=== PATIENT | female | born 1990 | race Caucasian/White ===

== ENCOUNTER 2016-08-15 09:06 | Inpatient (IN) | payer MEDICAID ==
[~2016-08-15] VITALS: Ht 160 cm; Wt 61.7 kg
[~2016-08-15 09:06] MED LIST: BACTRIM DS 8001 TAB PO; FERROUS SULFAT324 M1 PO; MOTRIN 400MG.400 MG PO; NOMEDS *; PYRIDIUM100 MG PO
[2016-08-15 09:24] VITALS: BP 139/78
[2016-08-15] MEDS ORDERED: NOMEDS XX (09:28)
[2016-08-15 09:44] LABS: HEMOGLOBIN 11.3 g/dL (12.2-16.2); LYMPH # 2.7 K/mm3 (0.7-4.5); LYMPH % 23.1 % (10-50.0)
--- NOTE | 2016-08-15 09:56 | Delivery Note ---
Delivery note Delivery date: 08/15/16 Delivery time: 935 Anesthesia: None Was labor medically induced? No Gestational age in weeks: 36 weeks Days: 6 days Delivery prior to 39 weeks? Yes Justification for delivery: Active labor Sex: female score at one minute: 9 at 5 minutes: 9 Type of suction: bulb AF: Thick mec LAC or MLE: LAC (none) Delivery procedure: Normal Delivery Delivery of placenta: spontaneous Clinical note She is a 26-year-old 3 now para 3 who was 36 and 6 weeks gestational age. She came in in active labor and was found be 9 cm dilated. She has had no care throughout the . She spontaneously ruptured her membranes and rapidly delivered a live-born female child at 9:36 AM in the morning of August 15, 2016. Baby's head delivered followed by the rest of the 's body atraumatically. The cord was clamped and cut, the oropharynx and nasopharynx were bulb suctioned and the baby was handed off to nurses who assigned Apgars of 9 at 1 and 9 at 5 minutes. Shortly after the baby was born Dr. Selby arrived. The baby cried spontaneously and was vigorous. Cord blood and cord gases were then obtained. The cord pH was 7.47. Patient received IV oxytocin and using gentle traction on the cord and countertraction on the fundus placenta was delivered intact. There were no perineal or vaginal lacerations. We will await routine blood work. We will also get routine drug screen. Stated blood loss was approximately 800 mL. Her rotary derrick operator is Dr. Selby. at [id number]
[2016-08-15 11:01] LABS: URINE BILIRUBIN - DIPSTICK NEGATIVE (NEG); URINE BLOOD 3+ (NEG)
[2016-08-15 11:16] LABS: AMPHETAMINES/METAMPHETAMINES NEGATIVE ng/mL (<1000)
[2016-08-15 11:43] LABS: ABO BLOOD TYPE A; RH BLOOD TYPE NEGATIVE
--- NOTE | 2016-08-15 11:47 | ACUTE CARE PROGRESS NOTE (QUA) ---
Progress Notes Subjective Date 08/15/16 Time 1145 Note She is had some bleeding since delivery and has now passed a large clot. She has bled approximately 500 mL since her delivery. I was able to evacuate approximately another 100 mL of blood clots from the uterus. The uterus is completely empty of clots and it is very firm. She has received Hemabate. She looks pale. Patient/family reports: feeling better Objective Findings Last VS-Temp:97.8 B/P:139/78 Pulse:91 Resp:18 SaO2: Last weight lbs:136 oz:0 [id number].689 Method:Digital Scales Exam General appearance: normal appearance Skin: pale Reviewed: vital signs, lab results Assessment/Plan Problem List 1. hemorrhage Patient condition Stable Plan: continue current care, order additional tests This inpt stay is expected to cross 2 MNs from start of care Yes Comments: She had hemorrhage with approximate 500 mL of blood loss on top of the 800 mL that she lost time for delivery. She has received Hemabate 1. We will get a stat H and H. We will continue with IV oxytocin. We will repeat her doses of Hemabate as necessary. We will type and cross her for 2 units of blood. at 1148
[2016-08-15 11:53] LABS: HEMOGLOBIN 9.4 g/dL (12.2-16.2)
[2016-08-15 16:08] LABS: HEMOGLOBIN 8.4 g/dL (12.2-16.2)
[2016-08-15 21:03] VITALS: BP 116/61
[2016-08-16] VITALS (19 sets, daily range): BP systolic 98–125; BP diastolic 50–72
[2016-08-16 06:37] LABS: Rubella Antibodies, IgG 1.62 index (Immune >0.99)
--- NOTE | 2016-08-16 07:53 | ACUTE CARE PROGRESS NOTE (QUA) ---
Progress Notes Subjective Date 08/16/16 Time 0750 Note She had significant bleeding is today after her delivery. She also had significant blood loss at the time of her delivery. Her hemoglobin this morning is 7.0 so we will go ahead and transfuse HER-2 units. Patient/family reports: feeling better, no complaints Objective Findings Last VS-Temp:98.0 B/P:116/61 Pulse:109 Resp:18 SaO2: Last weight lbs:136 oz:0 K.689 Method:Digital Scales Laboratory Tests 08/16/16 0640: Hgb 7.0 *L, Hct 20.2 *L 08/15/16 1600: Hgb 8.4 L, Hct 25.3 L 08/15/16 1142: Hgb 9.4 L, Hct 28.2 L 08/15/16 0930: Cord Blood pH 7.47 H 08/15/16 0925: MCH 28.5 08/15/16 0925: WBC 11.5 H, RBC 3.98 L, Hgb 11.3 L, Hct 33.9 L, MCV 85.3, RDW 14.4, Plt Count 155, MPV 10.1, Gran % 73.5, Gran # 8.5 H, Lymphocytes % 23.1, Monocytes % 3.1, Eosinophils % 0.2, Basophils % 0.1, Lymphocytes # 2.7, Monocytes # 0.4, Eosinophils # 0.0, Basophils # 0.0, PUBS MCHC 33.4, Antibody Screen NEGATIVE, Miscellaneous Test NEGATIVE 08/15/16 0900: Opiates Screen NEGATIVE, Urine Methadone Screen NEGATIVE, Barbiturates NEGATIVE, Phencyclidine Screen NEGATIVE, Amphetamines Screen NEGATIVE, Benzodiazepines Screen NEGATIVE, Cocaine Screen POSITIVE H, Marijuana (THC) Screen NEGATIVE, Urine Color YELLOW, Urine Appearance SL CLOUDY, Urine pH 7.5, Ur Specific Mcgehee 1.020, Urine Protein 2+ H, Urine Ketones NEGATIVE, Urine Blood 3+ H, Urine Nitrate NEGATIVE, Urine Bilirubin NEGATIVE, Urine Urobilinogen 0.2, Ur Leukocyte Esterase NEGATIVE, Urine RBC 5-10, Urine WBC 5-10, Ur Squamous Epith Cells 5-10, Urine Bacteria 2+, Urine Glucose NEGATIVE Microbiology 08/15 899 URINE CC: Urine Culture - RECD Exam General appearance: normal appearance, alert, awake, no acute distress Skin: pale Reviewed: vital signs, lab results Assessment/Plan Problem List 1. hemorrhage Patient condition Improving, Stable Plan: continue current care, care management consult This inpt stay is expected to cross 2 MNs from start of care Yes Comments: We will go ahead and transfuse HER-2 units this morning. She looks pale but otherwise is doing well. She is bottlefeeding. Her lochia this morning is normal. She was positive for cocaine yesterday so we will have psychiatric social worker supervisor see her today. She also had no care in this . She had only 2 visits in her last . at [id number]
[2016-08-16 08:42] LABS: HBsAg Screen Negative (Negative); HIV Screen 4th Generation wRfx Non Reactive (Non Reactive); Rapid Plasma Reagin, Quant Non Reactive (NonRea<1:1)
[2016-08-16 10:28] LABS: ABO BLOOD TYPE A
[2016-08-16 10:29] LABS: RH BLOOD TYPE NEGATIVE
[2016-08-16 10:30] LABS: ANTIHUMAN GLOB CROSSMATCH COMPAT
[2016-08-16 13:46] LABS: ABO BLOOD TYPE A
[2016-08-16 13:54] LABS: RH BLOOD TYPE NEGATIVE
[2016-08-16 14:20] LABS: FETALSCREEN NEGATIVE (NEGATIVE); RHOGAM LOT # RHOGAM INFORMATION
[2016-08-16 15:17] LABS: HEMOGLOBIN 7.9 g/dL (12.2-16.2)
[2016-08-17] VITALS (10 sets, daily range): BP systolic 104–122; BP diastolic 50–65
[2016-08-17 07:25] LABS: HEMOGLOBIN 7.2 g/dL (12.2-16.2)
--- NOTE | 2016-08-17 08:05 | ACUTE CARE PROGRESS NOTE (QUA) ---
Progress Notes Subjective Date 08/17/16 Time 0803 Note She seems to be doing well this morning. She is eating and drinking and ambulating. She did receive 2 units of blood and her hemoglobin is still only 7.2 this morning. We will plan to give her another unit of blood today. Her lochia has been normal. She denies any shortness of breath or dizziness. Patient/family reports: feeling better, no complaints Objective Findings Last VS-Temp:98.0 B/P:125/72 Pulse:84 Resp:18 SaO2: Last weight lbs:136 oz:0 K.689 Method:Digital Scales Laboratory Tests 08/17/16 0615: Hgb 7.2 *L, Hct 21.7 *L 08/16/16 1510: Hgb 7.9 *L, Hct 22.0 *L 08/16/16 1221: Misc Test Units BLOOD UNIT RELEASE 08/16/16 1038: Misc Test Units BLOOD UNIT RELEASE 08/16/16 0845: RBC Giana Test NEGATIVE, Antibody Screen NEGATIVE, Miscellaneous Test NEGATIVE Exam General appearance: normal appearance, alert, awake, no acute distress Skin: pale Reviewed: vital signs, lab results Assessment/Plan Problem List 1. hemorrhage Patient condition Improving, Stable Plan: continue current care, initiate discharge plan This inpt stay is expected to cross 2 MNs from start of care Yes Comments: She is doing well this morning. She did receive 2 units her hemoglobin is still only 7.2. We will give her another unit of blood. We will send her home with iron tablets as well. at 0805
--- NOTE | 2016-08-17 08:09 | Discharge Summary ---
Discharge Summary Admission date: 08/15/16 Discharge date: 08/17/16 Discharge diagnoses: Term , no care, maternal drug abuse Clinical note: She is a 26-year-old 3 now para 3 who was around 36 or 37 weeks gestational age. She's had no care. She is had a baby just 11 months ago. She did not follow up for her visits after her last baby. She had no care and the last . On arrival she was found to be 9 cm dilated. She was positive for cocaine. Course in hospital: She rapidly progressed to full dilation and delivered spontaneously a liveborn female child at 9:36 AM in the morning of August 15, 2016. The baby weighed 6 lbs. 11 oz. was 18 inches long and had Apgars of 9 at 1 minute and 9 at 5 minutes. she lost a considerable amount of blood and as result of that we elected to transfuse her 2 units. Her hemoglobin this morning is still only 7.2 so we'll give her 1 more unit. She is otherwise asymptomatic. She does not have any excess bleeding at this point in time. On arrival she was positive for cocaine and had no care. She was seen by outreach and education social worker and they are holding the baby. They are looking a for suitable place for the baby to go home. She has a Rh negative blood, she is rubella immune and was group B streptococcus unknown. She is bottlefeeding. She has received RhoGam. Plans for ongoing care: She is discharged home to follow-up with me in 2 weeks' time. I've given her prescription for iron tablets to take 3 times daily. Discharge medications She will take iron at home 3 times daily. She will continue with her vitamins. She is just taking [id number] analgesics for discomfort. DC/follow-up instructions She was given the usual instructions with respect to limiting her activity, driving and sexual activity. She was given instructions about taking her iron tablets. Condition at discharge Stable and improved at 0808
--- NOTE | 2016-08-17 08:09 | Discharge Summary ---
Discharge Summary Admission date: 08/15/16 Discharge date: 08/17/16 Discharge diagnoses: Term , no care, maternal drug abuse Clinical note: She is a 26-year-old 3 now para 3 who was around 36 or 37 weeks gestational age. She's had no care. She is had a baby just 11 months ago. She did not follow up for her visits after her last baby. She had no care and the last . On arrival she was found to be 9 cm dilated. She was positive for cocaine. Course in hospital: She rapidly progressed to full dilation and delivered spontaneously a liveborn female child at 9:36 AM in the morning of August 15, 2016. The baby weighed 6 lbs. 11 oz. was 18 inches long and had Apgars of 9 at 1 minute and 9 at 5 minutes. she lost a considerable amount of blood and as result of that we elected to transfuse her 2 units. Her hemoglobin this morning is still only 7.2 so we'll give her 1 more unit. She is otherwise asymptomatic. She does not have any excess bleeding at this point in time. On arrival she was positive for cocaine and had no care. She was seen by social services director and they are holding the baby. They are looking a for suitable place for the baby to go home. She has a Rh negative blood, she is rubella immune and was group B streptococcus unknown. She is bottlefeeding. She has received RhoGam. Plans for ongoing care: She is discharged home to follow-up with me in 2 weeks' time. I've given her prescription for iron tablets to take 3 times daily. Discharge medications She will take iron at home 3 times daily. She will continue with her vitamins. She is just taking [id number] analgesics for discomfort. DC/follow-up instructions She was given the usual instructions with respect to limiting her activity, driving and sexual activity. She was given instructions about taking her iron tablets. Condition at discharge Stable and improved at 0808
[2016-08-17] MEDS ORDERED: IRON TABLETS325 MG PO (08:10)
[2016-08-17 09:52] LABS: ANTIHUMAN GLOB CROSSMATCH COMPAT
[2016-08-17 13:31] LABS: HEMOGLOBIN 9.4 g/dL (12.2-16.2)
--- NOTE | 2016-08-22 17:39 | HISTORY AND PHYSICAL REPORT ---
Demographics: Admit date: 08/15/16 Chief complaint: Active labor, contractions, ruptured membranes PRIMARY DIAGNOSIS: active labor, no care Allergies: Coded Allergies: No Known Allergies (08/22/16) History of present illness: History of present illness: She is a 26-year-old 3 para 2 who is thought to be close to term. She has had no care throughout the . Minute in active labor and was found be 8 cm dilated. She had ruptured her membranes at home. She is positive for cocaine. Past medical history: Family HX Family Hx Insignificant Yes Immunization HX DT/Tetanus 1-4 YRS Pneumonia 08/17/2016 Rec'd Unknown General CAD? No Angina: No [place]: No Hypertension? No Hyperlipidemia? No CHF? No DVT? No PE? No COPD? No Asthma? No Anemia? No GERD? No Gastric ulcers? No GI Bleed? No Hernia? No Thyroid Problems? No Hypothyroidism? No CVA? No Seizures? No Diabetes? No Renal Insuffiency? No UTI? No Stones? No GB Disease: No Nephritic Syndrome? No Asplenia? No Hepatitis? No Sickle Cell Disease? No Arthritis? No Migraines? No Cataracts? No Glaucoma? No MRSA? No HIV? No TB? No Anxiety? No Depression? No Cancer? No More? No Past Surgical HX Previous Surgery?Y LEFT EAR Current home meds: Active Scripts Ibuprofen (MOTRIN 400MG) 400 MG PO Q8HP PRN MILD PAIN, FEVER OR HEADACHE #40 TAB Prov: 08/24/16 Social Hx: Smoking HX Tobacco Yes Type CIGARETTES Packs/day 1 1/2 - 2 PACKS Are you/the child exposed to second-hand smoke: No Alcohol Alcohol: No Hx of Drug Use Drug Use? Yes Drug(s) of Choice: cocaine Review of systems: Constitutional No: no symptoms reported. Eyes No: no symptoms reported. Ears, Nose, Mouth, Throat No no symptoms reported Respiratory No: no symptoms reported. Cardiovascular No no symptoms reported Gastrointestinal/Abdominal No see HPI Genitourinary No: see HPI. Musculoskeletal No: no symptoms reported. Neurological No: no symptoms reported. Psychiatric No: no symptoms reported. Exam: Lab data for last 24 hours: Laboratory Tests 08/22/16 1641: Opiates Screen NEGATIVE, Urine Methadone Screen NEGATIVE, Barbiturates NEGATIVE, Phencyclidine Screen NEGATIVE, Amphetamines Screen NEGATIVE, Benzodiazepines Screen NEGATIVE, Cocaine Screen NEGATIVE, Marijuana (THC) Screen NEGATIVE 08/22/16 1336: Sodium 139, Potassium 3.6, Chloride 106, Carbon Dioxide 27, BUN 12, Creatinine 0.7, Estimated Creat Clear 106, Estimated GFR (MDRD) 103, Glucose 76, Calcium 7.7 L, Total Bilirubin 0.3, AST 13 L, ALT 30, Alkaline Phosphatase 151 H, Total Protein 5.9 L, Albumin 2.2 L, Globulin 3.7 H, Albumin/Globulin Ratio 0.6 L, PT 10.2, INR 0.95, APTT 24.0, WBC 9.7, RBC 3.05 L, Hgb 9.5 L, Hct 27.4 L, MCV 90.1, RDW 16.8, Plt Count 265, MPV 7.5, Gran % 76.8, Gran # 7.5, Lymphocytes % 17.8, Monocytes % 4.8, Eosinophils % 0.6, Basophils % 0.1, Lymphocytes # 1.7, Monocytes # 0.5, Eosinophils # 0.1, Basophils # 0.0, PUBS MCHC 34.5, MCH 31.1 Admission vital signs: 1ST Vital Signs Result Date Time Pulse Ox 100 08/22 1335 B/P 85/47 08/22 1335 Temp 97.8 08/22 1335 Pulse 96 08/22 1335 Resp 20 08/22 1335 Exam General appearance: normal appearance, alert, awake Eyes: normal exam ENT: normal exam Neck: normal inspection Cardiovascular: normal exam Respiratory: normal exam ABD: normal exam (gravid) Genitourinary: normal voiding & quantity Extremities: normal exam Musculoskeletal: normal exam Skin: normal exam Neuro: normal exam Plan: Problem List 1. No care in current 2. Normal delivery Plan: She came in in active labor and was found be 8 cm dilated. She properly progressed to full dilation and delivered spontaneously a liveborn child. at [phone]
== END 2016-08-17 14:50 | disposition home or self-care (01) | DRG 774 ==
LOC: OBOUT 09:06 → OB 09:06 → OBOUT 09:19 → OB 09:19
PROVIDERS: Nurse Practitioner Obstetrics & Gynecology
PROC: 10E0XZZ Delivery of Products of Conception, External Approach (ICD-10-PCS; principal; 2016-08-15)
PROC: 3E0234Z Introduction of Serum, Toxoid and Vaccine into Muscle, Percutaneous Approach (ICD-10-PCS; principal; 2016-08-15)
DX: O99.323 Drug use complicating pregnancy, third trimester (principal); O72.1 Other immediate postpartum hemorrhage; F14.90 Cocaine use, unspecified, uncomplicated; O09.33 Supervision of pregnancy with insufficient antenatal care, third trimester; Z3A.36 36 weeks gestation of pregnancy; Z37.0 Single live birth
CPT/HCPCS: G0432; J0290; J2405; J2790; P9016

== ENCOUNTER 2016-08-22 13:35 | Inpatient (IN) | payer MEDICAID ==
[2016-08-22] VITALS (13 sets, daily range): BP systolic 85–118; BP diastolic 47–85
[~2016-08-22] VITALS: Ht 160 cm; Wt 54.4 kg
[~2016-08-22 13:35] MED LIST changes: +IRON TABLETS325 MG PO; +NOMEDS XX
--- NOTE | 2016-08-22 13:44 | Emergency Room Report ---
History of Present Illness Time Seen by MD Meehan Presenting Problem in Triage Pt arrived:Ambulance Stretcher Presenting Problem:PT BROUGHT IN PER EMS R/T INCREASED VAGINAL BLEEDING THAT PT REPORTS BEGAN SUDDENLY. PT STATES SHE IS 1 WEEK POST VAGINAL DELIVERY, STATES WAS HER THIRD DELIVERY. PT STATES HAS BEEN HAVING NORMAL POST DELIVERY BLEEDING UNTIL TODAY Onset of symptoms date/time:08/22/16/ or onset unknown for:MEDICAL HX UNKNOWN Treatment Prior to Arrival: SALINE LOCK, NORMAL SALINE, VS MONITORING RIB CHOPPER Provided by:TECHNICAL TRANSLATOR Sepsis Risk Assessment: Temp: B/P: 85/47 MAP: 59 Pulse: 96 Resp: 20 Recent fever? N Clinical Suspician of Infection? N Mental Status: 1 - Regular (Normal Baseline) Sepsis Risk:Possible Sepsis Risk Have you (or family members/close friends) recently traveled outside the [place]? N If Yes, where/when: Have you had exposure to infectious disease within the past month? N TB? Other? Specify: Comment The patient arrives by ambulance complaining of vaginal bleeding. She is status post vaginal delivery 1 week ago. Welding Rod Coater is Dr. Barillas. She says that her delivery was complicated by hemorrhage and she required a transfusion of 3 units of blood. Her bleeding had slowed to a typical post delivery amount of bleeding until approximately 30 minutes ago when she began bleeding heavily. She complains of suprapubic, lower abdominal pain. ALLERGIES Coded Allergies: No Known Allergies (10/09/15) Home Medications Active Scripts Ferrous Sulfate (Iron Tablet) 325 MG PO TID #90 ECT Ref 1 Prov: 08/17/16 History Medical History General SD: No Hypertension? No Hyperlipidemia? No CHF? No COPD? No Asthma? No CVA? No Seizures? No Diabetes? No GB Disease: No MRSA? No TB? No Cancer? 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 Physical Exam Vital Signs Vital Signs Date Time Temp Pulse Resp B/P Pulse O2 O2 Flow FiO2 Ox Delivery Rate 08/22 1403 95 20 106/56 100 08/22 1355 97 20 111/64 100 08/22 1345 86 20 97/52 100 08/22 1338 91 20 86/53 100 08/22 1335 97.8 96 20 85/47 100 General Appearance normal appearance, WD/WN Eye Exam - bilateral eye normal exam, bilateral eye PERRL, bilateral eye EOMI Ear, Nose, Throat hearing grossly normal, normal ENT inspection Neck normal inspection, non-tender, supple, full range of motion Respiratory Status Yes: trachea midline, chest symmetrical, non tender chest. No: respiratory distress. Lung Sounds bilateral: normal breath sounds, lungs clear. Cardiovascular normal exam, regular rate/rhythm, no peripheral edema, no gallop, no JVD, no murmur, no rub, normal peripheral pulses Peripheral Pulses Pulses normal Yes Gastrointestinal normal bowel sounds, no guarding, no rebound, uterine fundus palpable to the level of the umbilicus, uterus tender. Extremities normal inspection Pelvic clots protruding from the vaginal introitus. On speculum examination approximately 50-100 mL of clots and blood removed, blood continues to pool. No tissue identified. Neurologic alert, salesperson burial needs II-XII nml as tested, normal exam, oriented x 3 Mental status normal mood/affect Skin skin is pale, but conjunctiva has normal color Medical Decision Making LABS/Meds/Orders Pt receiving controlled substance in ED? Yes Vijay was queried for this patient? No Reason not queried - emergent pt cond=no time Results/Orders Laboratory Tests 08/22/16 1336: Sodium 139, Potassium 3.6, Chloride 106, Carbon Dioxide 27, BUN 12, Creatinine 0.7, Estimated Creat Clear 106, Estimated GFR (MDRD) 103, Glucose 76, Calcium 7.7 L, Total Bilirubin 0.3, AST 13 L, ALT 30, Alkaline Phosphatase 151 H, Total Protein 5.9 L, Albumin 2.2 L, Globulin 3.7 H, Albumin/Globulin Ratio 0.6 L, PT 10.2, INR 0.95, APTT 24.0, WBC 9.7, RBC 3.05 L, Hgb 9.5 L, Hct 27.4 L, MCV 90.1, RDW 16.8, Plt Count 265, MPV 7.5, Gran % 76.8, Gran # 7.5, Lymphocytes % 17.8, Monocytes % 4.8, Eosinophils % 0.6, Basophils % 0.1, Lymphocytes # 1.7, Monocytes # 0.5, Eosinophils # 0.1, Basophils # 0.0, PUBS MCHC 34.5, MCH 31.1 Current Medication Orders Sig/Joshua Start time Last Medication Dose Route Stop Time Status Admin Morphine Sulfate 0 .STK-MED ONE 08/22 1628 DC .ROUTE Fentanyl Citrate 0 .STK-MED ONE 08/22 1625 DC IV Midazolam HCl 0 .STK-MED ONE 08/22 1625 DC .ROUTE Lactated Ringer's 1,000 ML .STK-MED ONE 08/22 1616 DC IV Morphine Sulfate 4 MG ONCE ONE 08/22 1615 DC IV 08/22 1616 Ondansetron HCl 4 MG ONCE ONE 08/22 1615 DC IV 08/22 1616 Methylergonovine 0.25 MG ONCE ONE 08/22 1500 DC Maleate IM 08/22 1501 Sodium Chloride 10 ML PRN PRN 08/22 1345 AC IV 08/23 1336 Orders Procedure Date/time Status DIET-NOTHING BY MOUTH 08/22 D Active GEN NSG/PT REQ (NOT FOR MEDS!) 08/22 1552 Active DRUG ABUSE SCREEN (TRIAGE) 08/22 1455 Active PROTIME/PARTIAL PROTIME 08/22 1344 Complete IV SALINE LOCK 08/22 1336 Active CBC WITH AUTO DIFF 08/22 1336 Complete CHEM 12 PROFILE 08/22 1336 Complete XRAY/CT/US XRAY/CT/US Ultrasound pelvis Comment As per [facility] procedure, ultrasound report received from aerospace technician: Enlarged uterus, 19 x 10 cm. Retained material in uterus, some has blood flow suggesting retained products of conception. The aerospace technician communicated this directly to Dr. Barillas and he requests that the patient be made nothing by mouth and sign a consent for D and E. Progress - 2:50 PM: Case discussed with Dr. Barillas. He recommends Methergine 0.25 mg IM, transabdominal ultrasound to rule out retained products of conception, urine drug screen. He states that the patient had presented with no care at all with a precipitous delivery and had a positive drug screen for cocaine when she presented. Departure Departure Disposition Still a Patient Clinical Impression Primary Impression: hemorrhage Qualifiers: hemorrhage type: unspecified Qualified Code: O72.1 - Other immediate hemorrhage Secondary Impressions: Hypotension Qualifiers: Hypotension type: unspecified hypotension type Qualified Code: I95.9 - Hypotension, unspecified Retained products of conception Condition STABLE ED Critical Care Critical Care Yes Time spent 30-74 min Vital system(s) involved: Shock (Hemorrhagic) I was present at bedside for Coordinating pt's care, During my initial exam, Reviewing lab results, Reviewing old records, Discussing pt condition at 1623
--- NOTE | 2016-08-22 13:44 | Emergency Room Report ---
History of Present Illness Time Seen by MD Meehan Presenting Problem in Triage Pt arrived:Ambulance Stretcher Presenting Problem:PT BROUGHT IN PER EMS R/T INCREASED VAGINAL BLEEDING THAT PT REPORTS BEGAN SUDDENLY. PT STATES SHE IS 1 WEEK POST VAGINAL DELIVERY, STATES WAS HER THIRD DELIVERY. PT STATES HAS BEEN HAVING NORMAL POST DELIVERY BLEEDING UNTIL TODAY Onset of symptoms date/time:08/22/16/ or onset unknown for:MEDICAL HX UNKNOWN Treatment Prior to Arrival: SALINE LOCK, NORMAL SALINE, VS MONITORING ROTARY DERRICK OPERATOR Provided by:PROJECT/PRODUCTION MANAGER IMAGING Sepsis Risk Assessment: Temp: B/P: 85/47 MAP: 59 Pulse: 96 Resp: 20 Recent fever? N Clinical Suspician of Infection? N Mental Status: 1 - Regular (Normal Baseline) Sepsis Risk:Possible Sepsis Risk Have you (or family members/close friends) recently traveled outside the [place]? N If Yes, where/when: Have you had exposure to infectious disease within the past month? N TB? Other? Specify: Comment The patient arrives by ambulance complaining of vaginal bleeding. She is status post vaginal delivery 1 week ago. Wrinkle Chaser is Dr. Barillas. She says that her delivery was complicated by hemorrhage and she required a transfusion of 3 units of blood. Her bleeding had slowed to a typical post delivery amount of bleeding until approximately 30 minutes ago when she began bleeding heavily. She complains of suprapubic, lower abdominal pain. ALLERGIES Coded Allergies: No Known Allergies (10/09/15) Home Medications Active Scripts Ferrous Sulfate (Iron Tablet) 325 MG PO TID #90 ECT Ref 1 Prov: 08/17/16 History Medical History General [place]: No Hypertension? No Hyperlipidemia? No CHF? No COPD? No Asthma? No CVA? No Seizures? No Diabetes? No GB Disease: No MRSA? No TB? No Cancer? 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 Physical Exam Vital Signs Vital Signs Date Time Temp Pulse Resp B/P Pulse O2 O2 Flow FiO2 Ox Delivery Rate 08/22 1403 95 20 106/56 100 08/22 1355 97 20 111/64 100 08/22 1345 86 20 97/52 100 08/22 1338 91 20 86/53 100 08/22 1335 97.8 96 20 85/47 100 General Appearance normal appearance, WD/WN Eye Exam - bilateral eye normal exam, bilateral eye PERRL, bilateral eye EOMI Ear, Nose, Throat hearing grossly normal, normal ENT inspection Neck normal inspection, non-tender, supple, full range of motion Respiratory Status Yes: trachea midline, chest symmetrical, non tender chest. No: respiratory distress. Lung Sounds bilateral: normal breath sounds, lungs clear. Cardiovascular normal exam, regular rate/rhythm, no peripheral edema, no gallop, no JVD, no murmur, no rub, normal peripheral pulses Peripheral Pulses Pulses normal Yes Gastrointestinal normal bowel sounds, no guarding, no rebound, uterine fundus palpable to the level of the umbilicus, uterus tender. Extremities normal inspection Pelvic clots protruding from the vaginal introitus. On speculum examination approximately 50-100 mL of clots and blood removed, blood continues to pool. No tissue identified. Neurologic alert, vice president of software development II-XII nml as tested, normal exam, oriented x 3 Mental status normal mood/affect Skin skin is pale, but conjunctiva has normal color Medical Decision Making LABS/Meds/Orders Pt receiving controlled substance in ED? Yes Vijay was queried for this patient? No Reason not queried - emergent pt cond=no time Results/Orders Laboratory Tests 08/22/16 1336: Sodium 139, Potassium 3.6, Chloride 106, Carbon Dioxide 27, BUN 12, Creatinine 0.7, Estimated Creat Clear 106, Estimated GFR (MDRD) 103, Glucose 76, Calcium 7.7 L, Total Bilirubin 0.3, AST 13 L, ALT 30, Alkaline Phosphatase 151 H, Total Protein 5.9 L, Albumin 2.2 L, Globulin 3.7 H, Albumin/Globulin Ratio 0.6 L, PT 10.2, INR 0.95, APTT 24.0, WBC 9.7, RBC 3.05 L, Hgb 9.5 L, Hct 27.4 L, MCV 90.1, RDW 16.8, Plt Count 265, MPV 7.5, Gran % 76.8, Gran # 7.5, Lymphocytes % 17.8, Monocytes % 4.8, Eosinophils % 0.6, Basophils % 0.1, Lymphocytes # 1.7, Monocytes # 0.5, Eosinophils # 0.1, Basophils # 0.0, PUBS MCHC 34.5, MCH 31.1 Current Medication Orders Sig/Joshua Start time Last Medication Dose Route Stop Time Status Admin Morphine Sulfate 0 .STK-MED ONE 08/22 1628 DC .ROUTE Fentanyl Citrate 0 .STK-MED ONE 08/22 1625 DC IV Midazolam HCl 0 .STK-MED ONE 08/22 1625 DC .ROUTE Lactated Ringer's 1,000 ML .STK-MED ONE 08/22 1616 DC IV Morphine Sulfate 4 MG ONCE ONE 08/22 1615 DC IV 08/22 1616 Ondansetron HCl 4 MG ONCE ONE 08/22 1615 DC IV 08/22 1616 Methylergonovine 0.25 MG ONCE ONE 08/22 1500 DC Maleate IM 08/22 1501 Sodium Chloride 10 ML PRN PRN 08/22 1345 AC IV 08/23 1336 Orders Procedure Date/time Status DIET-NOTHING BY MOUTH 08/22 D Active GEN NSG/PT REQ (NOT FOR MEDS!) 08/22 1552 Active DRUG ABUSE SCREEN (TRIAGE) 08/22 1455 Active PROTIME/PARTIAL PROTIME 08/22 1344 Complete IV SALINE LOCK 08/22 1336 Active CBC WITH AUTO DIFF 08/22 1336 Complete CHEM 12 PROFILE 08/22 1336 Complete XRAY/CT/US XRAY/CT/US Ultrasound pelvis Comment As per [facility] procedure, ultrasound report received from vascular ultrasound technologist: Enlarged uterus, 19 x 10 cm. Retained material in uterus, some has blood flow suggesting retained products of conception. The vascular ultrasound technologist communicated this directly to Dr. Barillas and he requests that the patient be made nothing by mouth and sign a consent for D and E. Progress - 2:50 PM: Case discussed with Dr. Barillas. He recommends Methergine 0.25 mg IM, transabdominal ultrasound to rule out retained products of conception, urine drug screen. He states that the patient had presented with no care at all with a precipitous delivery and had a positive drug screen for cocaine when she presented. Departure Departure Disposition Still a Patient Clinical Impression Primary Impression: hemorrhage Qualifiers: hemorrhage type: unspecified Qualified Code: O72.1 - Other immediate hemorrhage Secondary Impressions: Hypotension Qualifiers: Hypotension type: unspecified hypotension type Qualified Code: I95.9 - Hypotension, unspecified Retained products of conception Condition STABLE ED Critical Care Critical Care Yes Time spent 30-74 min Vital system(s) involved: Shock (Hemorrhagic) I was present at bedside for Coordinating pt's care, During my initial exam, Reviewing lab results, Reviewing old records, Discussing pt condition at 1625
[2016-08-22 13:45] LABS: HEMOGLOBIN 9.5 g/dL (12.2-16.2); LYMPH # 1.7 K/mm3 (0.7-4.5); LYMPH % 17.8 % (10-50.0)
--- NOTE | 2016-08-22 16:04 | RADIOLOGY REPORT PS360 ---
US PELVIS (NO FETUS) COMPARISON: Ultrasound 09/14/2015 HISTORY: 1 week with heavy vaginal bleeding TECHNIQUE: Transvaginal imaging FINDINGS: Multiple echogenic foci within the endometrium suggesting retained products of conception. Color Doppler appear to show flow to the foci. The uterus measures 18.6 cm length by 8.32-cm in height 10.47 cm in width. Both ovaries are imaged and appear normal. There is no cul-de-sac fluid. IMPRESSION: Probable retained products of conception
[2016-08-22 17:09] LABS: AMPHETAMINES/METAMPHETAMINES NEGATIVE ng/mL (<1000)
--- NOTE | 2016-08-22 17:28 | HISTORY AND PHYSICAL REPORT ---
Demographics: Admit date: 08/22/16 Chief complaint: hemorrhage PRIMARY DIAGNOSIS: retained products of conception, hemorrhage Allergies: Coded Allergies: No Known Allergies (10/09/15) History of present illness: History of present illness: She is a 26-year-old 3 para 3 who was one-week . She did have hemorrhage and bleeding at the time of her delivery. She received 3 units of blood after her last delivery. She had no care during her last . Today around 12:30 she began having very heavy vaginal bleeding and came to the ER. Her hemoglobin was 9.5 which was about what was when she was discharge. She had an ultrasound that showed possible retained products. Past medical history: Family HX Family Hx Insignificant Yes Immunization HX DT/Tetanus 1-4 YRS Pneumonia 08/17/2016 General CAD? No Angina: No [place]: No Hypertension? No Hyperlipidemia? No CHF? No DVT? No PE? No COPD? No Asthma? No Anemia? No GERD? No Gastric ulcers? No GI Bleed? No Hernia? No Thyroid Problems? No Hypothyroidism? No CVA? No Seizures? No Diabetes? No Renal Insuffiency? No UTI? No Stones? No GB Disease: No Nephritic Syndrome? No Asplenia? No Hepatitis? No Sickle Cell Disease? No Arthritis? No Migraines? No Cataracts? No Glaucoma? No MRSA? No HIV? No TB? No Anxiety? No Depression? No Cancer? No More? No Past Surgical HX Previous Surgery?Y LEFT EAR Current home meds: Active Scripts Ferrous Sulfate (Iron Tablet) 325 MG PO TID #90 ECT Ref 1 Prov: 08/17/16 Social Hx: Smoking HX Tobacco Yes Type CIGARETTES Packs/day 1 1/2 - 2 PACKS Are you/the child exposed to second-hand smoke: No Alcohol Alcohol: No Hx of Drug Use Drug Use? Yes Drug(s) of Choice: cocaine Patien't marital status is single Patient's support system is fair Review of systems: Constitutional No: no symptoms reported. Eyes No: no symptoms reported. Respiratory No: no symptoms reported. Cardiovascular No no symptoms reported Gastrointestinal/Abdominal No see HPI Genitourinary No: see HPI. Musculoskeletal No: no symptoms reported. Skin No: no symptoms reported. Neurological No: no symptoms reported. Psychiatric No: no symptoms reported. Exam: Lab data for last 24 hours: Laboratory Tests 08/22/16 1641: Opiates Screen NEGATIVE, Urine Methadone Screen NEGATIVE, Barbiturates NEGATIVE, Phencyclidine Screen NEGATIVE, Amphetamines Screen NEGATIVE, Benzodiazepines Screen NEGATIVE, Cocaine Screen NEGATIVE, Marijuana (THC) Screen NEGATIVE 08/22/16 1336: Sodium 139, Potassium 3.6, Chloride 106, Carbon Dioxide 27, BUN 12, Creatinine 0.7, Estimated Creat Clear 106, Estimated GFR (MDRD) 103, Glucose 76, Calcium 7.7 L, Total Bilirubin 0.3, AST 13 L, ALT 30, Alkaline Phosphatase 151 H, Total Protein 5.9 L, Albumin 2.2 L, Globulin 3.7 H, Albumin/Globulin Ratio 0.6 L, PT 10.2, INR 0.95, APTT 24.0, WBC 9.7, RBC 3.05 L, Hgb 9.5 L, Hct 27.4 L, MCV 90.1, RDW 16.8, Plt Count 265, MPV 7.5, Gran % 76.8, Gran # 7.5, Lymphocytes % 17.8, Monocytes % 4.8, Eosinophils % 0.6, Basophils % 0.1, Lymphocytes # 1.7, Monocytes # 0.5, Eosinophils # 0.1, Basophils # 0.0, PUBS MCHC 34.5, MCH 31.1 Admission vital signs: 1ST Vital Signs Result Date Time Pulse Ox 100 08/22 1335 B/P 85/47 08/22 1335 Temp 97.8 08/22 1335 Pulse 96 08/22 1335 Resp 20 08/22 1335 Exam General appearance: normal appearance, alert, awake, no acute distress Eyes: normal exam ENT: normal exam, mucous membranes moist Neck: normal inspection, non-tender Cardiovascular: normal exam Respiratory: normal exam ABD: normal exam Extremities: normal exam Musculoskeletal: normal exam Skin: normal exam, pale Neuro: normal exam Plan: Problem List 1. hemorrhage 2. Retained products of conception 3. Hypotension Plan: She has what appears to be retained products. We will go ahead with a D and Milvia. I discussed the risk of surgery that includes bleeding, infection, injuries to adjacent structures with the patient and her mother. All questions were answered and consents were signed. at [id number]
--- NOTE | 2016-08-22 17:32 | Operative Note ---
Procedure/Operative Record Procedure Date of procedure: 08/22/16 Pre-Op Dx: Retained products of conception, hemorrhage Post-Op Dx: Retained products of conception, hemorrhage Procedure performed: Dilation and evacuation of retained products Surgeon: Dr. Pipo Barillas Food And Beverage Checker(s): None Anesthesia: Isreal Orozco EBL (ml): 300 Clinical note: She is a 26-year-old 3 para 3 who is one-week . She had no care. She did have hemorrhage and received 3 units of blood . She came in this afternoon with heavy bleeding. An ultrasound showed that she had possible retained products. Operative findings: She had an anteverted uterus. There was products at the fundus consistent with placental tissue. It was very adherent to the endometrium possibly consistent with a small area of placenta accreta Operative note: She was taken the operating room where LMA anesthesia was found be adequate. She was prepped and draped in normal sterile fashion in the lithotomy position. A weighted speculum was placed in vagina and the anterior lip of the cervix was grasped with a sponge forcep. I then placed my fingers in the vagina and up into the uterine cavity. I was able to feel placental tissue at the fundus.. I was able to peel some of the placenta off from the uterus but it was very adherent. I used a sponge forcep to grasp pieces of tissue. I used a large curet to curet the endometrial cavity as well as a 12 mm Borden suction curette. I was able to examine the uterine cavity at the end of the procedure and it seemed that I had retrieved all the tissue. There was still some nodular tissue at the posterior fundus but this may have been part of the area of accreta. She was not actively bleeding. She was taken to the recovery room in excellent condition. All sponge an isthmic counts were correct. The estimated blood loss was approximately 300 mL. Conplications: None Specimens: Products of conception. at 1730
--- NOTE | 2016-08-22 17:34 | Anesthesia Record ---
Anesthesia Record Part I Total IV fluids: 1500 EBL (ml): 300 Urine Output: 0 B/P: 123/65 % SaO2: 98 Pulse: 100 Resps: 16 Temp: 97.1 Patient is: Awake, Stable Stable to PACU at: 1725 at 1733
--- NOTE | 2016-08-22 17:34 | Anesthesia Record ---
Anesthesia Record Part II Discharge time: 1755 Destination: Second Floor PACU nurse assessment review? Yes Patient is: Awake, Stable Anesthesia complications? No at [phone]
[2016-08-22 18:23] LABS: HEMOGLOBIN 7.1 g/dL (12.2-16.2)
[2016-08-23] VITALS (38 sets, daily range): BP systolic 93–124; BP diastolic 47–77
[2016-08-23 06:39] LABS: ABO BLOOD TYPE A; RH BLOOD TYPE NEGATIVE
[2016-08-23 07:06] LABS: LYMPH # 2.1 K/mm3 (0.7-4.5); LYMPH % 21.9 % (10-50.0)
[2016-08-23 07:10] LABS: HEMOGLOBIN 5.3 g/dL (12.2-16.2)
--- NOTE | 2016-08-23 08:39 | ACUTE CARE PROGRESS NOTE (QUA) ---
Progress Notes Subjective Date 08/23/16 Time 0836 Note She is doing well this morning and she has had minimal lochia overnight. Her hemoglobin this morning though has dropped and we're awaiting blood from the blood bank. She has some abnormal antibodies and as result of that we had to delay her transfusion. Patient/family reports: feeling better, no complaints Objective Findings Last VS-Temp:98.4 B/P:111/67 Pulse:89 Resp:18 SaO2:98 ROOM AIR Last weight lbs:120 oz:0 K.432 Method:Stated Laboratory Tests 08/23/16 0832: [facility] [place] Test Units BLOOD UNIT RELEASE 08/23/16 0625: Sodium 139, Potassium 4.2, Chloride 108 H, Carbon Dioxide 27, BUN 11, Creatinine 0.6, Estimated Creat Clear 124, Estimated GFR (MDRD) 123, Glucose 107 H, Calcium 7.6 L, WBC 9.5, RBC 1.72 L, Hgb 5.3 *L, Hct 15.4 *L, MCV 90.0, RDW 17.1, Plt Count 207, MPV 7.4, Gran % 73.6, Gran # 7.0, Lymphocytes % 21.9, Monocytes % 4.2, Eosinophils % 0.3, Basophils % 0.1, Lymphocytes # 2.1, Monocytes # 0.4, Eosinophils # 0.0, Basophils # 0.0, PUBS MCHC 34.7, MCH 31.2 08/22/16 1845: Antibody Screen POSITIVE H, Miscellaneous Test NEGATIVE 08/22/16 1750: Hgb 7.1 *L, Hct 21.2 *L 08/22/16 1641: Opiates Screen NEGATIVE, Urine Methadone Screen NEGATIVE, Barbiturates NEGATIVE, Phencyclidine Screen NEGATIVE, Amphetamines Screen NEGATIVE, Benzodiazepines Screen NEGATIVE, Cocaine Screen NEGATIVE, Marijuana (THC) Screen NEGATIVE 08/22/16 1336: Sodium 139, Potassium 3.6, Chloride 106, Carbon Dioxide 27, BUN 12, Creatinine 0.7, Estimated Creat Clear 106, Estimated GFR (MDRD) 103, Glucose 76, Calcium 7.7 L, Total Bilirubin 0.3, AST 13 L, ALT 30, Alkaline Phosphatase 151 H, Total Protein 5.9 L, Albumin 2.2 L, Globulin 3.7 H, Albumin/Globulin Ratio 0.6 L, PT 10.2, INR 0.95, APTT 24.0, WBC 9.7, RBC 3.05 L, Hgb 9.5 L, Hct 27.4 L, MCV 90.1, RDW 16.8, Plt Count 265, MPV 7.5, Gran % 76.8, Gran # 7.5, Lymphocytes % 17.8, Monocytes % 4.8, Eosinophils % 0.6, Basophils % 0.1, Lymphocytes # 1.7, Monocytes # 0.5, Eosinophils # 0.1, Basophils # 0.0, PUBS MCHC 34.5, MCH 31.1 Exam General appearance: normal appearance, alert, awake, no acute distress Skin: pale Reviewed: vital signs, lab results Assessment/Plan Problem List 1. No care in current 2. Normal delivery Patient condition Improving, Stable Plan: continue current care This inpt stay is expected to cross 2 MNs from start of care No Comments: She will receive at least 2 units of blood this morning. We may consider another 2 units after her first transfusion. at 0839
[2016-08-23 13:34] LABS: HEMOGLOBIN 7.2 g/dL (12.2-16.2)
[2016-08-23 13:59] LABS: ANTIHUMAN GLOB CROSSMATCH COMPAT
[2016-08-23 14:00] LABS: ANTIHUMAN GLOB CROSSMATCH COMPAT
[2016-08-23 19:14] LABS: HEMOGLOBIN 9.6 g/dL (12.2-16.2)
[2016-08-24] VITALS: BP 111/64
[2016-08-24 04:00] VITALS: BP 113/69
[2016-08-24 07:49] LABS: HEMOGLOBIN 8.9 g/dL (12.2-16.2)
[2016-08-24 08:00] VITALS: BP 101/46
--- NOTE | 2016-08-24 08:17 | ACUTE CARE PROGRESS NOTE (QUA) ---
Progress Notes Subjective Date 08/24/16 Time 0816 Note She is doing much better this morning. She has received 4 units of blood. She is eating and drinking and ambulating. She feels better. Patient/family reports: feeling better, no complaints Objective Findings Last VS-Temp:97.8 B/P:113/69 Pulse:72 Resp:18 SaO2:99 ROOM AIR Last weight lbs:120 oz:0 K.432 Method:Stated Laboratory Tests 08/24/16 0655: Hgb 8.9 L, Hct 25.6 L 08/23/16 1858: Hgb 9.6 L, Hct 27.0 L 08/23/16 1613: Misc Test Units BLOOD UNIT RELEASE 08/23/16 1413: Misc Test Units BLOOD UNIT RELEASE 08/23/16 1253: Hgb 7.2 *L, Hct 20.9 *L 08/23/16 0957: Misc Test Units BLOOD UNIT RELEASE 08/23/16 0832: Misc Test Units BLOOD UNIT RELEASE Vital Signs Result Date Time Resp 18 08/24 0731 Pulse Ox 99 08/24 0400 B/P 113/69 08/24 0400 Temp 97.8 08/24 0400 Pulse 72 08/24 0400 O2 Delivery ROOM AIR 08/23 0800 Exam General appearance: normal appearance, alert, awake, no acute distress Reviewed: vital signs, lab results Assessment/Plan Problem List 1. No care in current 2. Normal delivery Patient condition Improving, Stable Plan: continue current care, initiate discharge plan This inpt stay is expected to cross 2 MNs from start of care No Comments: She is doing very well this morning. We'll plan to send her home. at 0817
--- NOTE | 2016-08-24 08:17 | Discharge Summary ---
Discharge Summary Admission date: 08/22/16 Discharge date: 08/24/16 Discharge diagnoses: hemorrhage, anemia, retained products of conception Clinical note: She is a 26-year-old 3 para 3 who was about a week . She came in with very heavy bleeding. She had an ultrasound that showed a small piece of retained placenta within the uterine cavity. As result of that we took her for a D and E. Course in hospital: On August 22, 2016 she underwent a dilation and evacuation of retained products of conception. There was a small piece of placental tissue that was quite adherent to the uterine fundus. Separately she has done well. She did have anemia with a hemoglobin of 5.3 and she has received 4 units of blood. Her lochia is normal. She is feeling much better. Laboratory Tests 08/24/16 0655: Hgb 8.9 L, Hct 25.6 L 08/23/16 1858: Hgb 9.6 L, Hct 27.0 L 08/23/16 1613: Misc Test Units BLOOD UNIT RELEASE 08/23/16 1413: Misc Test Units BLOOD UNIT RELEASE 08/23/16 1253: Hgb 7.2 *L, Hct 20.9 *L 08/23/16 0957: Misc Test Units BLOOD UNIT RELEASE 08/23/16 0832: Misc Test Units BLOOD UNIT RELEASE Plans for ongoing care: She is discharged home to follow-up with me in a week. Discharge medications She will continue with her vitamins and iron. She was given a pressure for Motrin 400 mg to take every 4 hours as needed for pain. DC/follow-up instructions She was given the usual instructions with respect to limiting her activity, driving and sexual activity. Condition at discharge Stable and improved at 0816
[2016-08-24] MEDS ORDERED: MOTRIN 400MG.400 MG PO (08:19)
[2016-08-24 09:00] VITALS: BP 101/46
== END 2016-08-24 09:00 | disposition home or self-care (01) | DRG 769 ==
LOC: ER 13:35 → SDC 16:48 → ER 16:48 → 2ND 17:29 → OB 17:29
PROVIDERS: Emergency Medicine; Nurse Practitioner Obstetrics & Gynecology
PROC: 10D17ZZ Extraction of Products of Conception, Retained, Via Natural or Artificial Opening (ICD-10-PCS; principal; 2016-08-22 16:30)
DX: O72.2 Delayed and secondary postpartum hemorrhage (principal)
CPT/HCPCS: J2405; P9016